=== PATIENT | male | born 2000 | race Caucasian/White ===

== ENCOUNTER 2021-03-16 18:45 | Inpatient (IN) | payer BC ==
[2021-03-16 19:07] VITALS: BMI 20.3
[2021-03-16] MEDS ORDERED: ACETAMINOPHEN 325 MG TABLET (FP) PO PRN ×2 (19:31)
[2021-03-16] MEDS ORDERED: ONDANSETRON *ODT* 4 MG TABLET SL PRN (19:31)
[2021-03-16] MEDS ORDERED: MAGNESIUM CITRATE 300 ML BOTTLE PO PRN (19:31)
[2021-03-16] MEDS ORDERED: MENTHOL/PHENOL 1 EACH UD MM PRN (19:31)
[2021-03-16] MEDS ORDERED: MAGNESIUM HYDROX 2400MG/30ML ORAL SUSPENSION 30 ML CUP PO PRN (19:31)
[2021-03-16] MEDS ORDERED: MAG HYDROX/AL HYDROX/SIMETH 30 ML UNIT-DOSE CUP PO PRN (19:31)
[2021-03-16] MEDS ORDERED: BISMUTH SUBSALICYLATE 524 MG/30 ML UD PO PRN (19:31)
[2021-03-16] MEDS ORDERED: chlordiazePOXIDE HCL 25 MG CAPSULE PO ONE (19:51)
[2021-03-16] MEDS ORDERED: chlordiazePOXIDE HCL 25 MG CAPSULE PO PRN (19:51)
[2021-03-16] MEDS ORDERED: BACITRACIN 15 GM TUBE TOPICAL OINTMENT TP SCH (22:00)
[2021-03-16] MEDS ORDERED: hydrOXYzine PAMOATE 25 MG CAPSULE (FP) PO SCH (22:00)
[2021-03-16] MEDS: BACITRACIN 0.9 GM PACKET TP SCH (23:26)
[2021-03-16] MEDS: chlordiazePOXIDE HCL 25 MG CAPSULE PO SCH (23:26)
[2021-03-16] MEDS: THIAMINE HCL 100 MG TABLET (FP) PO SCH (23:26)
[2021-03-16] MEDS: MELATONIN 5 MG TABLETS PO SCH (23:26)
[2021-03-17] MEDS: chlordiazePOXIDE HCL 25 MG CAPSULE PO SCH ×4 (05:25→22:10)
[2021-03-17] MEDS: BACITRACIN 0.9 GM PACKET TP SCH ×2 (10:05→22:10)
[2021-03-17] MEDS: PRENATAL VITAMINS W/ FOLIC ACID TABLET (FP) PO SCH (10:05)
[2021-03-17 11:04] LABS: ALBUMIN 3.6 g/dl (3.4-5.0); BLOOD UREA NITROGEN 8.3 mg/dL (7-18); CALCIUM 8.9 mg/dL (8.5-10.1)
[2021-03-17 11:07] LABS: CREATININE 0.9 mg/dL (0.55-1.3)
[2021-03-17 11:09] LABS: TOT PROT 6.6 g/dl (6.4-8.2)
[2021-03-17 12:06] LABS: HEMOGLOBIN 13.7 GM/dL (11.7-16.9); MCH 31.5 pg (25.7-33.7); MCHC 34.2 g/dl (32.0-35.9); MEAN CELL VOLUME 91.9 fl (80-96); MEAN PLT VOLUME 8.6 fl (7.5-11.1); PLATELET COUNT 220 K/MM3 (134-434); RBC 4.35 M/mm3 (4.00-5.60); RDW 13.8 % (11.9-15.9); WHITE BLOOD COUNT 8.5 K/mm3 (4.0-10.0)
[2021-03-17] MEDS: NICOTINE POLACRILEX 4 MG GUM BUC PRN (20:49)
[2021-03-17] MEDS: THIAMINE HCL 100 MG TABLET (FP) PO SCH (22:10)
[2021-03-17] MEDS: MELATONIN 5 MG TABLETS PO SCH (22:10)
[2021-03-18] MEDS: chlordiazePOXIDE HCL 10 MG CAPSULE PO SCH ×4 (05:56→22:01)
[2021-03-18] MEDS: PRENATAL VITAMINS W/ FOLIC ACID TABLET (FP) PO SCH (10:53)
[2021-03-18] MEDS: BACITRACIN 0.9 GM PACKET TP SCH ×2 (10:54→22:29)
[2021-03-18] MEDS: IBUPROFEN 400 MG TABLET (FP) PO PRN ×2 (10:56→23:32)
[2021-03-18] MEDS: NICOTINE POLACRILEX 4 MG GUM BUC PRN ×4 (11:17→22:54)
[2021-03-18] MEDS: MELATONIN 5 MG TABLETS PO SCH (22:01)
[2021-03-18] MEDS: THIAMINE HCL 100 MG TABLET (FP) PO SCH (22:01)
[2021-03-18] MEDS: METHOCARBAMOL 500 MG TABLET PO PRN (22:02)
[2021-03-19] MEDS ORDERED: chlordiazePOXIDE HCL 10 MG CAPSULE PO PRN
[2021-03-19] MEDS ORDERED: chlordiazePOXIDE HCL 10 MG CAPSULE PO SCH (05:00)
[2021-03-19] MEDS: METHOCARBAMOL 500 MG TABLET PO PRN (05:27)
[2021-03-19 08:59] VITALS: BP 116/85; PULSE 77; TEMP 96.8
[2021-03-19] MEDS: PRENATAL VITAMINS W/ FOLIC ACID TABLET (FP) PO SCH (10:15)
[2021-03-19] MEDS: BACITRACIN 0.9 GM PACKET TP SCH (10:17)
[2021-03-20] MEDS ORDERED: chlordiazePOXIDE HCL 10 MG CAPSULE PO ONE (05:00)
[2021-03-20 06:06] LABS: SARS-CoV-2 NAA Not Detected (Not Detected)
== END 2021-03-19 11:59 | disposition home or self-care (01) | DRG 897 ==
LOC: YASAS 18:45 → Y3N 20:17
PROVIDERS: ADMIT Allergy & Immunology; ATTEND Allergy & Immunology
PROC: HZ2ZZZZ Detoxification Services for Substance Abuse Treatment (ICD-10-PCS; principal; 2021-03-16)
DX: F13.230 Sedative, hypnotic or anxiolytic dependence with withdrawal, uncomplicated (principal); G40.509 Epileptic seizures related to external causes, not intractable, without status epilepticus; F12.20 Cannabis dependence, uncomplicated; F10.10 Alcohol abuse, uncomplicated; F17.210 Nicotine dependence, cigarettes, uncomplicated; F40.9 Phobic anxiety disorder, unspecified
CPT/HCPCS: 36415; 80053; 85027; 86780; C9803; U0003; U0005

== ENCOUNTER 2021-09-17 03:58 | Emergency (ER) | payer BC ==
[2021-09-17 04:32] VITALS: TEMP 98.1; BMI 19.8
[2021-09-17] MEDS ORDERED: NALOXONE HCL 0.4 MG/ML VIAL ONE (05:46)
[2021-09-17] MEDS ORDERED: NALOXONE HCL 0.4 MG/ML VIAL IM PRN (05:46)
[2021-09-17 12:57] VITALS: BP 127/81; PULSE 83
== END 2021-09-17 13:13 | disposition home or self-care (01) ==
LOC: JER 03:58
PROC: 3E033GC Introduction of Other Therapeutic Substance into Peripheral Vein, Percutaneous Approach (ICD-10-PCS; principal; 2021-09-17)
DX: T40.0X1A Poisoning by opium, accidental (unintentional), initial encounter (principal)
CPT/HCPCS: 70450-TC; 99284-25

== ENCOUNTER 2021-09-17 14:03 | Inpatient (IN) | payer BC ==
[~2021-09-17 14:03] MED LIST: NALOXONE (NARCAN) HCL 4 MG/0.1 ML SPRAY NS ONE
[2021-09-17] MEDS ORDERED: MAGNESIUM HYDROX 2400MG/30ML ORAL SUSPENSION 30 ML CUP PO PRN (15:18)
[2021-09-17] MEDS ORDERED: MAGNESIUM CITRATE 300 ML BOTTLE PO PRN (15:18)
[2021-09-17] MEDS ORDERED: MAG HYDROX/AL HYDROX/SIMETH 30 ML UNIT-DOSE CUP PO PRN (15:18)
[2021-09-17] MEDS ORDERED: IBUPROFEN 400 MG TABLET (FP) PO PRN (15:18)
[2021-09-17] MEDS ORDERED: NICOTINE 10 MG CARTRIDGE (INHALER) IH PRN (15:18)
[2021-09-17] MEDS ORDERED: diazePAM 5 MG TABLET PO PRN (15:18)
[2021-09-17] MEDS ORDERED: MENTHOL/PHENOL 1 EACH UD MM PRN (15:18)
[2021-09-17] MEDS ORDERED: BISMUTH SUBSALICYLATE 524 MG/30 ML PO PRN (15:18)
[2021-09-17] MEDS ORDERED: METHOCARBAMOL 500 MG TABLET PO PRN (15:18)
[2021-09-17] MEDS ORDERED: ONDANSETRON *ODT* 4 MG TABLET SL PRN (15:18)
[2021-09-17] MEDS ORDERED: ACETAMINOPHEN 325 MG TABLET (FP) PO PRN ×2 (15:18)
[2021-09-17 15:28] VITALS: BMI 20.5
[2021-09-17] MEDS ORDERED: NICOTINE 7 MG/24 HOURS TOPICAL PATCH TD SCH (15:30)
[2021-09-17] MEDS ORDERED: PRENATAL VITAMINS W/ FOLIC ACID TABLET (FP) PO SCH (15:30)
[2021-09-17] MEDS ORDERED: diazePAM 5 MG TABLET PO SCH (17:00)
[2021-09-17] MEDS ORDERED: hydrOXYzine PAMOATE 25 MG CAPSULE (FP) PO SCH (18:00)
[2021-09-17 19:13] VITALS: BP 128/85; PULSE 84; TEMP 96.8
[2021-09-17] MEDS ORDERED: MELATONIN 5 MG TABLETS PO SCH (22:00)
[2021-09-17] MEDS ORDERED: THIAMINE HCL 100 MG TABLET (FP) PO SCH (22:00)
[2021-09-19] MEDS ORDERED: diazePAM 5 MG TABLET PO SCH (06:00)
[2021-09-20] MEDS ORDERED: diazePAM 5 MG TABLET PO SCH (06:00)
[2021-09-21] MEDS ORDERED: diazePAM 5 MG TABLET PO ONE (06:00)
== END 2021-09-17 20:35 | disposition left against medical advice (07) | DRG 894 ==
LOC: YASAS 14:03 → Y3N 16:37
PROVIDERS: ADMIT Allergy & Immunology; ATTEND Allergy & Immunology
PROC: HZ2ZZZZ Detoxification Services for Substance Abuse Treatment (ICD-10-PCS; principal; 2021-09-17)
DX: F13.230 Sedative, hypnotic or anxiolytic dependence with withdrawal, uncomplicated (principal); F10.10 Alcohol abuse, uncomplicated; F14.10 Cocaine abuse, uncomplicated; F12.20 Cannabis dependence, uncomplicated; F17.210 Nicotine dependence, cigarettes, uncomplicated; F31.9 Bipolar disorder, unspecified; F41.8 Other specified anxiety disorders; R40.4 Transient alteration of awareness; Z86.69 Personal history of other diseases of the nervous system and sense organs
CPT/HCPCS: C9803; U0003; U0005

== ENCOUNTER 2022-01-30 08:02 | Inpatient (IN) | payer BC ==
[2022-01-29 22:33] VITALS: BMI 20.3
[2022-01-30] MEDS: diazePAM 5 MG TABLET PO SCH ×4 (06:56→22:08)
[~2022-01-30 08:02] MED LIST changes: +ACETAMINOPHEN 325 MG TABLET (FP) PO PRN; +BISMUTH SUBSALICYLATE 524 MG/30 ML PO PRN; +IBUPROFEN 400 MG TABLET (FP) PO PRN; +LOPERAMIDE HCL 2 MG CAPSULE PO PRN; +MAG HYDROX/AL HYDROX/SIMETH 30 ML UNIT-DOSE CUP PO PRN; +MAGNESIUM CITRATE 300 ML BOTTLE PO PRN; +MAGNESIUM HYDROX 2400MG/30ML ORAL SUSPENSION 30 ML CUP PO PRN; +MENTHOL/PHENOL 1 EACH UD MM PRN; -NALOXONE (NARCAN) HCL 4 MG/0.1 ML SPRAY NS ONE; +ONDANSETRON *ODT* 4 MG TABLET SL PRN; +cloNIDine HCL 0.1 MG TABLET PO PRN; +diazePAM 5 MG TABLET ONE; +diazePAM 5 MG TABLET PO ONE; +methaDONE HCL 10 MG TABLET (FOR DETOX USE ONLY) ONE; +methaDONE HCL 10 MG TABLET (FOR DETOX USE ONLY) PO ONE
[2022-01-30] MEDS ORDERED: METHOCARBAMOL 500 MG TABLET ONE (09:03)
[2022-01-30] MEDS ORDERED: diazePAM 5 MG TABLET ONE (09:03)
[2022-01-30] MEDS ORDERED: methaDONE HCL 10 MG TABLET (FOR DETOX USE ONLY) ONE (09:03)
[2022-01-30] MEDS: PRENATAL VITAMINS W/ FOLIC ACID TABLET (FP) PO SCH (10:08)
[2022-01-30] MEDS: NICOTINE 10 MG CARTRIDGE (INHALER) IH PRN ×4 (11:13→21:27)
[2022-01-30] MEDS: METHOCARBAMOL 500 MG TABLET PO PRN ×2 (13:04→19:13)
[2022-01-30] MEDS: diazePAM 5 MG TABLET PO PRN ×2 (13:05→19:13)
[2022-01-30] MEDS: NICOTINE POLACRILEX 2 MG GUM BUC PRN ×2 (15:34→19:31)
[2022-01-30] MEDS ORDERED: MELATONIN 5 MG TABLETS PO SCH (22:00)
[2022-01-30] MEDS ORDERED: THIAMINE HCL 100 MG TABLET (FP) PO SCH (22:00)
[2022-01-30] MEDS: hydrOXYzine PAMOATE 25 MG CAPSULE (FP) PO PRN (22:09)
[2022-01-31] MEDS: diazePAM 5 MG TABLET PO SCH ×2 (05:44→13:35)
[2022-01-31] MEDS: METHOCARBAMOL 500 MG TABLET PO PRN ×2 (05:46→10:13)
[2022-01-31] MEDS: hydrOXYzine PAMOATE 25 MG CAPSULE (FP) PO PRN ×2 (05:46→15:03)
[2022-01-31] MEDS ORDERED: methaDONE HCL 10 MG TABLET (FOR DETOX USE ONLY) ONE (09:53)
[2022-01-31] MEDS ORDERED: ESCITALOPRAM OXALATE 10 MG TABLET PO SCH (10:00)
[2022-01-31] MEDS ORDERED: busPIRone HCL 5 MG TABLET PO SCH (10:00)
[2022-01-31] MEDS: diazePAM 5 MG TABLET PO PRN (10:13)
[2022-01-31] MEDS: PRENATAL VITAMINS W/ FOLIC ACID TABLET (FP) PO SCH (10:16)
[2022-01-31] MEDS: NICOTINE 10 MG CARTRIDGE (INHALER) IH PRN (11:24)
[2022-01-31] MEDS: NICOTINE POLACRILEX 2 MG GUM BUC PRN ×2 (11:26→15:03)
[2022-01-31 11:36] LABS: HEMATOCRIT 41.4 % (35.4-49); HEMOGLOBIN 14.5 GM/dL (11.7-16.9); MCH 32.6 pg (25.7-33.7); MCHC 35.1 g/dl (32.0-35.9); MEAN CELL VOLUME 93.1 fl (80-96); PLATELET COUNT 262 10^3/uL (134-434); RBC 4.45 M/mm3 (4.00-5.60); RDW 12.7 % (11.9-15.9); WHITE BLOOD COUNT 5.6 K/mm3 (4.0-10.0)
[2022-01-31 11:50] LABS: ALBUMIN 3.7 g/dl (3.4-5.0); BLOOD UREA NITROGEN 7.2 mg/dL (7-18); CALCIUM 9.3 mg/dL (8.5-10.1)
[2022-01-31 11:54] LABS: CREATININE 0.9 mg/dL (0.55-1.3)
[2022-01-31 11:55] LABS: BILIRUBIN,TOTAL 0.6 mg/dL (0.2-1); TOT PROT 6.8 g/dl (6.4-8.2)
[2022-01-31 13:44] VITALS: BP 142/109; PULSE 106; TEMP 96.1
[2022-02-01] MEDS ORDERED: diazePAM 5 MG TABLET PO SCH (06:00)
[2022-02-01] MEDS ORDERED: methaDONE HCL 10 MG TABLET (FOR DETOX USE ONLY) PO ONE (10:00)
[2022-02-01 14:07] LABS: SARS-CoV-2 NAA Not Detected (Not Detected)
[2022-02-02] MEDS ORDERED: diazePAM 5 MG TABLET PO ONE (06:00)
[2022-02-03] MEDS ORDERED: methaDONE HCL 10 MG TABLET (FOR DETOX USE ONLY) PO ONE (10:00)
== END 2022-01-31 15:35 | disposition left against medical advice (07) | DRG 894 ==
LOC: YASAS 08:02 → Y3N 10:14
PROVIDERS: ADMIT Allergy & Immunology; ATTEND Allergy & Immunology
PROC: HZ2ZZZZ Detoxification Services for Substance Abuse Treatment (ICD-10-PCS; principal; 2022-01-30)
DX: F11.23 Opioid dependence with withdrawal (principal); F19.280 Other psychoactive substance dependence with psychoactive substance-induced anxiety disorder; F13.230 Sedative, hypnotic or anxiolytic dependence with withdrawal, uncomplicated; F12.20 Cannabis dependence, uncomplicated; F17.290 Nicotine dependence, other tobacco product, uncomplicated; Z86.59 Personal history of other mental and behavioral disorders
CPT/HCPCS: 36415; 80053; 85027; 86780; 87811; C9803; U0003; U0005

== ENCOUNTER 2022-02-01 11:01 | Inpatient (IN) | payer BC ==
[2022-02-01] MEDS ORDERED: MENTHOL/PHENOL 1 EACH UD MM PRN (11:46)
[2022-02-01] MEDS ORDERED: IBUPROFEN 400 MG TABLET (FP) PO PRN (11:46)
[2022-02-01] MEDS ORDERED: LOPERAMIDE HCL 2 MG CAPSULE PO PRN (11:46)
[2022-02-01] MEDS ORDERED: cloNIDine HCL 0.1 MG TABLET PO ONE (11:46)
[2022-02-01] MEDS ORDERED: BUPRENORPHINE HCL 150 MCG, BUPRENORPHINE HCL 75 MCG BC ONE (11:46)
[2022-02-01] MEDS ORDERED: MAG HYDROX/AL HYDROX/SIMETH 30 ML UNIT-DOSE CUP PO PRN (11:46)
[2022-02-01] MEDS ORDERED: BISMUTH SUBSALICYLATE 262 MG/15 ML BTL PO PRN (11:46)
[2022-02-01] MEDS ORDERED: ACETAMINOPHEN 325 MG TABLET (FP) PO PRN ×2 (11:46)
[2022-02-01] MEDS ORDERED: MAGNESIUM HYDROX 2400MG/30ML ORAL SUSPENSION 30 ML CUP PO PRN (11:46)
[2022-02-01] MEDS ORDERED: ONDANSETRON *ODT* 4 MG TABLET SL PRN (11:46)
[2022-02-01] MEDS ORDERED: MAGNESIUM CITRATE 300 ML BOTTLE PO PRN (11:46)
[2022-02-01] MEDS ORDERED: diazePAM 5 MG TABLET PO PRN (11:46)
[2022-02-01 12:18] VITALS: BMI 20.7
[2022-02-01] MEDS ORDERED: methaDONE HCL 10 MG TABLET (FOR DETOX USE ONLY) PO ONE ×2 (12:32→13:15)
[2022-02-01] MEDS: diazePAM 5 MG TABLET PO SCH ×3 (12:41→22:30)
[2022-02-01] MEDS: PRENATAL VITAMINS W/ FOLIC ACID TABLET (FP) PO SCH (13:30)
[2022-02-01] MEDS: hydrOXYzine PAMOATE 25 MG CAPSULE (FP) PO SCH ×3 (13:31→22:29)
[2022-02-01] MEDS: METHOCARBAMOL 500 MG TABLET PO PRN ×2 (13:32→19:41)
[2022-02-01] MEDS: NICOTINE 7 MG/24 HOURS TOPICAL PATCH TD SCH (13:42)
[2022-02-01] MEDS: NICOTINE 10 MG CARTRIDGE (INHALER) IH PRN ×2 (13:47→18:32)
[2022-02-01 15:05] LABS: HEMATOCRIT 40.6 % (35.4-49); HEMOGLOBIN 13.6 GM/dL (11.7-16.9); MCH 30.9 pg (25.7-33.7); MCHC 33.5 g/dl (32.0-35.9); MEAN CELL VOLUME 92.3 fl (80-96); MEAN PLT VOLUME 8.3 fl (7.5-11.1); PLATELET COUNT 271 10^3/uL (134-434); RDW 12.6 % (11.9-15.9); WHITE BLOOD COUNT 6.1 K/mm3 (4.0-10.0)
[2022-02-01 15:44] LABS: CALCIUM 8.8 mg/dL (8.5-10.1)
[2022-02-01 15:45] LABS: ALBUMIN 3.6 g/dl (3.4-5.0)
[2022-02-01] MEDS ORDERED: cloNIDine HCL 0.1 MG TABLET PO PRN (15:46)
[2022-02-01 15:47] LABS: BLOOD UREA NITROGEN 11.3 mg/dL (7-18)
[2022-02-01 15:49] LABS: CREATININE 1.1 mg/dL (0.55-1.3)
[2022-02-01 15:51] LABS: BILIRUBIN,TOTAL 0.4 mg/dL (0.2-1); TOT PROT 6.5 g/dl (6.4-8.2)
[2022-02-01] MEDS: diazePAM 5 MG TABLET PO PRN (19:41)
[2022-02-01] MEDS: MELATONIN 5 MG TABLETS PO SCH (22:29)
[2022-02-01] MEDS: THIAMINE HCL 100 MG TABLET (FP) PO SCH (22:29)
[2022-02-02] MEDS: hydrOXYzine PAMOATE 25 MG CAPSULE (FP) PO SCH ×5 (05:58→22:05)
[2022-02-02] MEDS: diazePAM 5 MG TABLET PO SCH ×4 (05:58→22:06)
[2022-02-02] MEDS ORDERED: BUPRENORPHINE HCL 150 MCG, BUPRENORPHINE HCL 75 MCG BC SCH (06:00)
[2022-02-02] MEDS ORDERED: methaDONE HCL 10 MG TABLET (FOR DETOX USE ONLY) ONE (08:58)
[2022-02-02] MEDS: PRENATAL VITAMINS W/ FOLIC ACID TABLET (FP) PO SCH (10:06)
[2022-02-02] MEDS: NICOTINE 7 MG/24 HOURS TOPICAL PATCH TD SCH ×2 (10:06→10:39)
[2022-02-02] MEDS: NICOTINE 10 MG CARTRIDGE (INHALER) IH PRN ×3 (10:07→22:57)
[2022-02-02] MEDS: METHOCARBAMOL 500 MG TABLET PO PRN ×2 (10:07→20:34)
[2022-02-02] MEDS: diazePAM 5 MG TABLET PO PRN ×2 (12:02→20:34)
[2022-02-02] MEDS ORDERED: COLLOIDAL OATMEAL 1 BAR EACH TP PRN (12:57)
[2022-02-02] MEDS: busPIRone HCL 5 MG TABLET PO SCH ×2 (13:19→22:05)
[2022-02-02] MEDS: ESCITALOPRAM OXALATE 10 MG TABLET PO SCH (13:19)
[2022-02-02 16:37] LABS: HIV INTERPRETATION NEGATIVE (NEGATIVE)
[2022-02-02] MEDS ORDERED: NICOTINE POLACRILEX 2 MG GUM BUC PRN (16:58)
[2022-02-02] MEDS: THIAMINE HCL 100 MG TABLET (FP) PO SCH (22:05)
[2022-02-02] MEDS: MELATONIN 5 MG TABLETS PO SCH (22:05)
[2022-02-03] MEDS: diazePAM 5 MG TABLET PO SCH ×3 (05:54→22:29)
[2022-02-03] MEDS: METHOCARBAMOL 500 MG TABLET PO PRN ×3 (05:54→17:37)
[2022-02-03] MEDS: hydrOXYzine PAMOATE 25 MG CAPSULE (FP) PO SCH ×5 (05:54→22:12)
[2022-02-03] MEDS ORDERED: BUPRENORPHINE HCL 450 MCG FILM BC SCH (06:00)
[2022-02-03] MEDS: diazePAM 5 MG TABLET PO PRN ×4 (07:58→22:12)
[2022-02-03] MEDS: NICOTINE 10 MG CARTRIDGE (INHALER) IH PRN ×4 (08:31→22:10)
[2022-02-03] MEDS ORDERED: methaDONE HCL 10 MG TABLET (FOR DETOX USE ONLY) PO ONE (10:00)
[2022-02-03] MEDS: busPIRone HCL 5 MG TABLET PO SCH ×2 (10:31→22:12)
[2022-02-03] MEDS: PRENATAL VITAMINS W/ FOLIC ACID TABLET (FP) PO SCH (10:31)
[2022-02-03] MEDS: ESCITALOPRAM OXALATE 10 MG TABLET PO SCH (10:33)
[2022-02-03] MEDS: NICOTINE 7 MG/24 HOURS TOPICAL PATCH TD SCH (10:34)
[2022-02-03] MEDS: THIAMINE HCL 100 MG TABLET (FP) PO SCH (22:12)
[2022-02-03] MEDS: MELATONIN 5 MG TABLETS PO SCH (22:12)
[2022-02-04] MEDS: diazePAM 5 MG TABLET PO PRN ×2 (02:18→08:45)
[2022-02-04] MEDS: hydrOXYzine PAMOATE 25 MG CAPSULE (FP) PO SCH ×2 (05:59→10:04)
[2022-02-04] MEDS ORDERED: BUPRENORPHINE/NALOXONE 4 MG/1 MG FILM PACKET SL SCH (06:00)
[2022-02-04] MEDS ORDERED: diazePAM 5 MG TABLET PO SCH (06:00)
[2022-02-04] MEDS: METHOCARBAMOL 500 MG TABLET PO PRN (06:01)
[2022-02-04] MEDS: NICOTINE 10 MG CARTRIDGE (INHALER) IH PRN (07:52)
[2022-02-04] MEDS ORDERED: methaDONE HCL 10 MG TABLET (FOR DETOX USE ONLY) ONE (09:51)
[2022-02-04] MEDS: ESCITALOPRAM OXALATE 10 MG TABLET PO SCH (10:04)
[2022-02-04] MEDS: busPIRone HCL 5 MG TABLET PO SCH (10:04)
[2022-02-04] MEDS: PRENATAL VITAMINS W/ FOLIC ACID TABLET (FP) PO SCH (10:04)
[2022-02-04] MEDS: NICOTINE 7 MG/24 HOURS TOPICAL PATCH TD SCH (10:07)
[2022-02-04 10:59] VITALS: BP 130/70; PULSE 85; TEMP 97.8
[2022-02-05] MEDS ORDERED: BUPRENORPHINE/NALOXONE 8 MG/2 MG FILM PACKET SL ONE (06:00)
[2022-02-05] MEDS ORDERED: diazePAM 5 MG TABLET PO ONE (06:00)
[2022-02-05 08:08] LABS: SARS-CoV-2 NAA Not Detected (Not Detected)
[2022-02-05] MEDS ORDERED: methaDONE HCL 10 MG TABLET (FOR DETOX USE ONLY) PO ONE ×2 (10:00)
== END 2022-02-04 11:28 | disposition left against medical advice (07) | DRG 894 ==
LOC: YASAS 11:01 → Y6N 12:03
PROVIDERS: ADMIT Allergy & Immunology; ATTEND Allergy & Immunology
PROC: HZ2ZZZZ Detoxification Services for Substance Abuse Treatment (ICD-10-PCS; principal; 2022-02-01)
DX: F11.23 Opioid dependence with withdrawal (principal); F19.280 Other psychoactive substance dependence with psychoactive substance-induced anxiety disorder; F19.282 Other psychoactive substance dependence with psychoactive substance-induced sleep disorder; F13.230 Sedative, hypnotic or anxiolytic dependence with withdrawal, uncomplicated; F12.20 Cannabis dependence, uncomplicated; F17.210 Nicotine dependence, cigarettes, uncomplicated; F41.9 Anxiety disorder, unspecified; F90.9 Attention-deficit hyperactivity disorder, unspecified type; Z86.69 Personal history of other diseases of the nervous system and sense organs
CPT/HCPCS: 36415; 80053; 85027; 86780; 87389; 87811; C9803; J0735; U0003; U0005

== ENCOUNTER 2022-09-13 13:48 | Inpatient (IN) | payer BC ==
[2022-09-13 14:25] VITALS: BMI 23.6
[2022-09-13] MEDS ORDERED: MAG HYDROX/AL HYDROX/SIMETH 30 ML UNIT-DOSE CUP PO PRN (16:13)
[2022-09-13] MEDS ORDERED: DICYCLOMINE HCL 10 MG CAPSULE PO PRN (16:13)
[2022-09-13] MEDS ORDERED: diazePAM 5 MG TABLET PO PRN (16:13)
[2022-09-13] MEDS ORDERED: LOPERAMIDE HCL 2 MG CAPSULE PO PRN (16:13)
[2022-09-13] MEDS ORDERED: IBUPROFEN 400 MG TABLET (FP) PO PRN (16:13)
[2022-09-13] MEDS ORDERED: MAGNESIUM CITRATE 300 ML BOTTLE PO PRN (16:13)
[2022-09-13] MEDS ORDERED: IBUPROFEN 600 MG TABLET (FP) PO PRN (16:13)
[2022-09-13] MEDS ORDERED: ONDANSETRON *ODT* 4 MG TABLET SL PRN (16:13)
[2022-09-13] MEDS ORDERED: hydrOXYzine PAMOATE 25 MG CAPSULE (FP) PO PRN (16:13)
[2022-09-13] MEDS ORDERED: NALOXONE HCL (KLOXXADO) 8 MG SPRAY NS PRN (16:13)
[2022-09-13] MEDS ORDERED: MAGNESIUM HYDROX 2400MG/30ML ORAL SUSPENSION 30 ML CUP PO PRN (16:13)
[2022-09-13] MEDS ORDERED: ACETAMINOPHEN 325 MG TABLET (FP) PO PRN ×2 (16:13)
[2022-09-13] MEDS ORDERED: BISMUTH SUBSALICYLATE 524 MG/30 ML PO PRN (16:13)
[2022-09-13] MEDS ORDERED: BENZOCAINE/MENTHOL (CHLORASEPTIC ) LOZENGE MM PRN (16:13)
[2022-09-13] MEDS: diazePAM 5 MG TABLET PO SCH ×2 (17:29→22:11)
[2022-09-13] MEDS ORDERED: methaDONE HCL 10 MG TABLET (FOR DETOX USE ONLY) PO ONE ×2 (17:44→18:09)
[2022-09-13] MEDS ORDERED: cloNIDine HCL 0.1 MG TABLET PO PRN (17:44)
[2022-09-13] MEDS: NICOTINE 10 MG CARTRIDGE (INHALER) IH PRN ×2 (18:36→22:23)
[2022-09-13] MEDS: METHOCARBAMOL 500 MG TABLET PO PRN (19:42)
[2022-09-13] MEDS ORDERED: MELATONIN 5 MG TABLETS PO SCH (22:00)
[2022-09-13] MEDS ORDERED: THIAMINE HCL 100 MG TABLET (FP) PO SCH (22:00)
[2022-09-14] MEDS: diazePAM 5 MG TABLET PO SCH ×2 (05:01→10:09)
[2022-09-14] MEDS: METHOCARBAMOL 500 MG TABLET PO PRN (05:02)
[2022-09-14 09:10] VITALS: BP 136/81; PULSE 76; RESP 18; TEMP 98.3
[2022-09-14] MEDS ORDERED: PRENATAL VITAMINS W/ FOLIC ACID TABLET (FP) PO SCH (10:00)
[2022-09-14] MEDS: NICOTINE 10 MG CARTRIDGE (INHALER) IH PRN (10:09)
[2022-09-14 11:07] LABS: HEMATOCRIT 42.7 % (35.4-49); MCH 27.6 pg (25.7-33.7); MCHC 32.9 g/dl (32.0-35.9); MEAN CELL VOLUME 84.1 fl (80-96); MEAN PLT VOLUME 8.4 fl (7.5-11.1); PLATELET COUNT 247 10^3/uL (134-434); RBC 5.08 M/mm3 (4.00-5.60); WHITE BLOOD COUNT 6.8 K/mm3 (4.0-10.0)
[2022-09-14 11:08] LABS: ALBUMIN 3.8 g/dl (3.4-5.0); BLOOD UREA NITROGEN 11.8 mg/dL (7-18); CALCIUM 9.7 mg/dL (8.5-10.1)
[2022-09-14 11:11] LABS: CREATININE 0.9 mg/dL (0.55-1.3)
[2022-09-14 11:13] LABS: BILIRUBIN,TOTAL 0.4 mg/dL (0.2-1); TOT PROT 6.7 g/dl (6.4-8.2)
[2022-09-15] MEDS ORDERED: diazePAM 5 MG TABLET PO SCH (06:00)
[2022-09-15] MEDS ORDERED: methaDONE HCL 10 MG TABLET (FOR DETOX USE ONLY) PO ONE (10:00)
[2022-09-16] MEDS ORDERED: diazePAM 5 MG TABLET PO SCH (06:00)
[2022-09-17] MEDS ORDERED: diazePAM 5 MG TABLET PO ONE (06:00)
[2022-09-17] MEDS ORDERED: methaDONE HCL 10 MG TABLET (FOR DETOX USE ONLY) PO ONE (10:00)
== END 2022-09-14 11:42 | disposition left against medical advice (07) | DRG 894 ==
LOC: YASAS 13:48 → Y3N 17:04
PROVIDERS: ADMIT Allergy & Immunology; ATTEND Surgery
PROC: HZ2ZZZZ Detoxification Services for Substance Abuse Treatment (ICD-10-PCS; principal; 2022-09-13)
DX: F11.23 Opioid dependence with withdrawal (principal); F14.20 Cocaine dependence, uncomplicated; F10.230 Alcohol dependence with withdrawal, uncomplicated; F13.230 Sedative, hypnotic or anxiolytic dependence with withdrawal, uncomplicated; F12.20 Cannabis dependence, uncomplicated; F17.210 Nicotine dependence, cigarettes, uncomplicated; F90.9 Attention-deficit hyperactivity disorder, unspecified type; Z86.69 Personal history of other diseases of the nervous system and sense organs
CPT/HCPCS: 36415; 80053; 85027; 86780; 93005; 93010; C9803-CS; U0003; U0005

== ENCOUNTER 2023-01-26 13:43 | Inpatient (IN) | payer BC ==
[2023-01-26 14:49] VITALS: RESP 16; BMI 25.8
[2023-01-26] MEDS ORDERED: IBUPROFEN 400 MG TABLET (FP) PO PRN (15:25)
[2023-01-26] MEDS ORDERED: hydrOXYzine PAMOATE 25 MG CAPSULE (FP) PO PRN (15:25)
[2023-01-26] MEDS ORDERED: BENZOCAINE/MENTHOL (CHLORASEPTIC ) LOZENGE MM PRN (15:25)
[2023-01-26] MEDS ORDERED: BISMUTH SUBSALICYLATE 262 MG/15 ML BTL PO PRN (15:25)
[2023-01-26] MEDS ORDERED: METHOCARBAMOL 500 MG TABLET PO PRN (15:25)
[2023-01-26] MEDS ORDERED: diazePAM 5 MG TABLET PO PRN (15:25)
[2023-01-26] MEDS ORDERED: cloNIDine HCL 0.1 MG TABLET PO PRN (15:25)
[2023-01-26] MEDS ORDERED: LOPERAMIDE HCL 2 MG CAPSULE PO PRN (15:25)
[2023-01-26] MEDS ORDERED: POLYETHYLENE GLYCOL (HEALTHYLAX) 3350 17 GM PACKET PO PRN (15:25)
[2023-01-26] MEDS ORDERED: ACETAMINOPHEN 325 MG TABLET (FP) PO PRN ×2 (15:25)
[2023-01-26] MEDS ORDERED: methaDONE HCL 10 MG TABLET (FOR DETOX USE ONLY) PO ONE (15:25)
[2023-01-26] MEDS ORDERED: IBUPROFEN 600 MG TABLET (FP) PO PRN (15:25)
[2023-01-26] MEDS ORDERED: DICYCLOMINE HCL 10 MG CAPSULE PO PRN (15:25)
[2023-01-26] MEDS ORDERED: ONDANSETRON *ODT* 4 MG TABLET SL PRN (15:25)
[2023-01-26] MEDS ORDERED: NICOTINE 10 MG CARTRIDGE (INHALER) IH PRN (15:25)
[2023-01-26] MEDS ORDERED: MAGNESIUM HYDROX 2400MG/30ML ORAL SUSPENSION 30 ML CUP PO PRN (15:25)
[2023-01-26] MEDS ORDERED: NICOTINE POLACRILEX 4 MG GUM BUC PRN (15:25)
[2023-01-26] MEDS ORDERED: MAG HYDROX/AL HYDROX/SIMETH 30 ML UNIT-DOSE CUP PO PRN (15:25)
[2023-01-26] MEDS ORDERED: NALOXONE HCL (KLOXXADO) 8 MG SPRAY NS PRN (15:25)
[2023-01-26] MEDS ORDERED: PRENATAL VITAMINS W/ FOLIC ACID TABLET (FP) PO SCH (15:30)
[2023-01-26] MEDS ORDERED: NICOTINE POLACRILEX 2 MG GUM ONE (16:09)
[2023-01-26] MEDS ORDERED: methaDONE HCL 10 MG TABLET (FOR DETOX USE ONLY) ONE (16:09)
[2023-01-26] MEDS ORDERED: diazePAM 5 MG TABLET ONE (16:10)
[2023-01-26] MEDS ORDERED: diazePAM 5 MG TABLET PO SCH (17:00)
[2023-01-26 17:50] VITALS: BP 131/76; PULSE 97; TEMP 98
[2023-01-26] MEDS ORDERED: MELATONIN 5 MG TABLETS PO SCH (22:00)
[2023-01-26] MEDS ORDERED: THIAMINE HCL 100 MG TABLET (FP) PO SCH (22:00)
[2023-01-28] MEDS ORDERED: diazePAM 5 MG TABLET PO SCH (06:00)
[2023-01-28] MEDS ORDERED: methaDONE HCL 10 MG TABLET (FOR DETOX USE ONLY) PO ONE (10:00)
[2023-01-29] MEDS ORDERED: diazePAM 5 MG TABLET PO SCH (06:00)
[2023-01-30] MEDS ORDERED: diazePAM 5 MG TABLET PO ONE (06:00)
[2023-01-30] MEDS ORDERED: methaDONE HCL 10 MG TABLET (FOR DETOX USE ONLY) PO ONE (10:00)
== END 2023-01-26 19:00 | disposition left against medical advice (07) | DRG 894 ==
LOC: YASAS 13:43 → Y6N 16:22
PROVIDERS: ADMIT Allergy & Immunology; ATTEND Surgery
PROC: HZ2ZZZZ Detoxification Services for Substance Abuse Treatment (ICD-10-PCS; principal; 2023-01-26)
DX: F11.23 Opioid dependence with withdrawal (principal); F13.20 Sedative, hypnotic or anxiolytic dependence, uncomplicated; F19.282 Other psychoactive substance dependence with psychoactive substance-induced sleep disorder; F14.10 Cocaine abuse, uncomplicated; F12.10 Cannabis abuse, uncomplicated; F17.210 Nicotine dependence, cigarettes, uncomplicated; F90.9 Attention-deficit hyperactivity disorder, unspecified type
CPT/HCPCS: C9803-CS; U0003; U0005